=== PATIENT | male | born 1985 | race Caucasian/White ===

== ENCOUNTER 2021-01-15 12:00 | Outpatient (RCR) | payer BC ==
[~2021-01-15] VITALS: Ht 185.5 cm; Wt 111.3 kg
== END 2021-01-15 12:55 | disposition home or self-care (01) ==
LOC: PREOP 12:00
PROVIDERS: ATTEND Surgery
DX: Z01.818 Encounter for other preprocedural examination (principal)

== ENCOUNTER 2021-01-22 09:26 | Day surgery (SDC) | payer BC ==
[2021-01-22] VITALS (10 sets, daily range): BP systolic 110–145; BP diastolic 73–91
[~2021-01-22] VITALS: Ht 185.5 cm; Wt 111.3 kg
[2021-01-22] MEDS ORDERED: LACTATED RINGERS 1,000 ML IV PRN ×2 (09:45→10:00)
[2021-01-22] MEDS ORDERED: ceFAZolin 2 GM IV Premixed 50 ML IV ONE (09:45)
[2021-01-22] MEDS ORDERED: ONDANSETRON 4 MG/2 ML (SDV) Z0FRAN ONE (11:19)
[2021-01-22] MEDS ORDERED: LIDOCAINE PF 2% 5 ML (XYLOCAINE) VIAL ONE (11:19)
[2021-01-22] MEDS ORDERED: SEVOFLURANE (ULTANE) 15 ML INHAL SOLN ONE (11:19)
[2021-01-22] MEDS ORDERED: proPOfol 200 MG/20 ML (DIPRIVAN) VIAL IV ONE (11:19)
[2021-01-22] MEDS ORDERED: MIDAZOLAM 2 MG/2 ML (VERSED) VIAL ONE (11:19)
[2021-01-22] MEDS ORDERED: fentaNYL INJ 100 MCG/2 ML AMP ONE ×2 (11:19→12:05)
--- NOTE | 2021-01-22 11:44 | Progress Note-Pre Operative ---
Pre-Operative Progress Note H&P Reviewed The H&P was reviewed, patient examined and no changes noted. Time Seen by Provider: 11:42 Date H&P Reviewed: Jan 22, 2021 Time H&P Reviewed: 11:42 Pre-Operative Diagnosis: Adwoa-rectal abscess vs fistula AMANDA MARIE DO Jan 22, 2021 11:44
[2021-01-22] MEDS ORDERED: LACTATED RINGERS 1,000 ML IV SCH (12:15)
[2021-01-22] MEDS ORDERED: HYDROmorphone 2 MG/ML VIAL (DILAUDID) IV ONE (12:45)
[2021-01-22] MEDS ORDERED: morphine INJ 10 MG/ML 1ML (SYR OR VIAL) IVP ONE (12:45)
[2021-01-22] MEDS ORDERED: ONDANSETRON 4 MG/2 ML (SDV) Z0FRAN IVP PRN (12:45)
--- NOTE | 2021-01-22 13:06 | Anesthesia-General Post-Op ---
General Patient Condition Mental Status/LOC: Same as Preop Cardiovascular: Satisfactory Nausea/Vomiting: Absent Respiratory: Satisfactory Pain: Controlled Complications: Absent Post Op Complications Complications None Follow Up Care/Instructions Patient Instructions None needed. Anesthesia/Patient Condition Patient Condition Patient is doing well, no complaints, stable vital signs, no apparent adverse anesthesia problems. LYNN ENAMORADO DO Jan 22, 2021 13:06
--- NOTE | 2021-01-22 13:14 | Progress Note-Post Operative ---
Post-Operative Progess Note Surgeon (s)/Assessment Services Manager (s) Surgeon AMANDA MAIRE DO Assessment Services Manager: none Pre-Operative Diagnosis Adwoa-rectal abscess vs fistula Post-Operative Diagnosis same plus anal papilla Procedure & Operative Findings Date of Procedure 01/22/21 Procedure Performed/Findings Fistulotomy x 2 Excision of anal papilla Anesthesia Type LMA Estimated Blood Loss Estimated blood loss (mL): scant Specimens/Packing Specimens Removed anal papilla fistula tract AMANDA MARIE DO Jan 22, 2021 13:14
[2021-01-22] MEDS ORDERED: ACHD5005 PO (13:15)
--- NOTE | 2021-01-22 13:16 | Discharge Inst-Surgical ---
Discharge Inst-Surgical Depart Medication/Instructions New, Converted or Re-Newed RX: RX Given to Pt/Family Patient Instructions Follow up Appt: Make appointment for 1 week. [phone] Instructions: Sitz bath 2-3 times a day as needed May shower in 24 hours, no tub bath or soaking. No Smoking Skin/Wound Care: Pads as needed for drainage. Symptoms to Report: Appetite Changes, Extremity Discoloration, Numbness/Tingling, Swelling Increased, Bleeding Excessive, Eyesight Changes, Pain Increased, Urine Color Change, Constipation(Persistent), Fever over 101 degree F, Pain/Pressure in chest, Urinating Difficulty, Cough Up/Vomit Blood, Heart Beat Irreg/Pounding, Pain/Pressure in jaw, Cramps in feet or legs, Lightheadedness, Pain/Pressure in shoulder, Diarrhea(Persistent), Memory Changes Suddenly, Questions/Concerns, Weight gain consecutive days, Dizziness/Fainting, Nausea/Vomiting, Shortness of Breath, Weight gain over 2 pounds If questions or concerns contact your physician Or seek help at emergency department. Activity Activity as Tolerated: Yes Activity Instructions: Avoid Stress to Incision Driving Instructions: No Driving/Refer to Diet Discharge Diet: No Restrictions (increase fluids) Diet After 24 Hours: Clear Liquid if Nauseous If Any Problems/Questions/Issu: Contact Your Physician, Go to Emergency Room Skin/Wound Care Infection Signs and Symptoms: Increased Redness, Foul Odor of Wound, Increased Drainage, Skin Itchy or Has a Rash, Increased Swelling, Temperature Above 101 F Bathing Instructions: Tub, Shower AMANDA MARIE DO Jan 22, 2021 13:16
--- NOTE | 2021-01-23 12:43 | OPERATIVE REPORT ---
DATE OF SERVICE: 01/22/2021 PREOPERATIVE DIAGNOSIS: Anal fistula. POSTOPERATIVE DIAGNOSES: Anal fistula, anal fissure and anal papilla. PROCEDURES PERFORMED: 1. Fistulotomy. 2. Excision of anal papilla. SURGEON: He Luu DO JACQUARD LOOM WEAVER: None. ANESTHESIA: LMA. SPECIMEN: 1. Anal papilla. 2. Portion of the fistula tract. BLOOD LOSS: Scant. FLUIDS: Per anesthesia. POSTOPERATIVE CONDITION: Stable. INDICATION FOR PROCEDURE: The patient is a 35-year-old male who had two areas on his perianal area that had been draining, looked like there may be fistulas and needed to get this looked at. FINDINGS: The patient had a couple of anal papilla and he had two anal fistulas, one of them connected and one of them did not connect to the inside. PROCEDURE NOTE: After informed consent was obtained, the patient was brought to the operating room and placed on the table in a lithotomy position. There had been a plan to do a flex sig, but everything was lowered and did not need to do this. In the lithotomy position, he had one opening at about the 10 o'clock position and the another opening at about the 5 o'clock position, starting with the one at the 10 o'clock position, tried to place a probe very gently. I could feel it going mostly superficial. I used the angiocatheter with hydrogen peroxide to try and see where it went on the inside, could not get it to go through. I then used another probe with a hook from the inside, went it through one of the anal crypts and had a speculum in place and able to get these to connect. This was superficial and was anterior to the anal sphincter, so it was not through the anal sphincter and we opened this up with a Bovie electrocautery, thereby performing a fistulotomy. I did get a little portion of the fistula tract and passed this off the table. He had a couple anal normal papilla when we could see using a speculum. I elected to remove one of these with the Bovie electrocautery, passed these off the table and sent to pathology, then located his other opening, again tried probing very gently, did not want to create a tract and then used some hydrogen peroxide again, this did not go anywhere towards the 6 o'clock position, so opened the skin slightly in this direction, but again still could not follow the tract. It did not appear to go inside and so at this point, then elected to stop, irrigated the area, dressings placed. The patient tolerated the procedure and he was transferred to recovery room in stable condition. Sponge, instrument and needle count correct at the end of the case. Job ID: [id number] DocumentID: [id number] Dictated Date: 01/23/2021 10:15:28 Polo Coach Date: 01/23/2021 12:42:54 Dictated By: HE LUU DO
== END 2021-01-22 14:25 | disposition home or self-care (01) ==
LOC: SDC 09:26
PROVIDERS: ATTEND Surgery
DX: K60.3 Anal fistula (principal); K60.2 Anal fissure, unspecified; Z91.013 Allergy to seafood; Z87.891 Personal history of nicotine dependence
CPT/HCPCS: 87081; 88304; 88305

== ENCOUNTER 2021-09-17 05:32 | Outpatient (CLI) | payer BC ==
[~2021-09-17] VITALS: Ht 185.5 cm; Wt 101.8 kg
[~2021-09-17 05:32] MED LIST: ACHD5005 PO
== END 2021-09-17 11:28 | disposition home or self-care (01) ==
LOC: PREOP 05:32
PROVIDERS: ATTEND Surgery
DX: Z01.818 Encounter for other preprocedural examination (principal)

== ENCOUNTER 2021-09-24 08:24 | Day surgery (SDC) | payer BC ==
[~2021-09-24] VITALS: Ht 185.5 cm; Wt 101.8 kg
[2021-09-24] VITALS (11 sets, daily range): BP systolic 104–134; BP diastolic 55–84
[2021-09-24] MEDS ORDERED: ceFAZolin 2 GM IV Premixed 50 ML IV ONE (08:45)
[2021-09-24] MEDS: LACTATED RINGERS 1,000 ML IV PRN ×2 (09:14→11:21)
--- NOTE | 2021-09-24 10:01 | Progress Note-Pre Operative ---
Pre-Operative Progress Note H&P Reviewed The H&P was reviewed, patient examined and no changes noted. Time Seen by Provider: 09:57 Date H&P Reviewed: Sep 24, 2021 Time H&P Reviewed: 09:57 Pre-Operative Diagnosis: anal fistula AMANDA MARIE DO Sep 24, 2021 10:01
[2021-09-24] MEDS ORDERED: ONDANSETRON 4 MG/2 ML (SDV) Z0FRAN ONE (10:11)
[2021-09-24] MEDS ORDERED: MIDAZOLAM 2 MG/2 ML (VERSED) VIAL ONE (10:11)
[2021-09-24] MEDS ORDERED: proPOfol 200 MG/20 ML (DIPRIVAN) VIAL IV ONE ×2 (10:11→10:51)
[2021-09-24] MEDS ORDERED: fentaNYL INJ 100 MCG/2 ML AMP ONE (10:11)
[2021-09-24] MEDS ORDERED: LIDOCAINE PF 2% 5 ML (XYLOCAINE) VIAL ONE (10:11)
[2021-09-24] MEDS ORDERED: LIDOCAINE/EPI 1%-1:100,000 (XYLOCAINE) 20ML ONE (10:12)
[2021-09-24] MEDS ORDERED: SEVOFLURANE (ULTANE) 15 ML INHAL SOLN ONE (11:12)
--- NOTE | 2021-09-24 11:13 | Progress Note-Post Operative ---
Post-Operative Progess Note Surgeon (s)/Level Vial Setter (s) Surgeon AMANDA MARIE DO Level Vial Setter: TALISHA Enriquez Pre-Operative Diagnosis anal fistula Post-Operative Diagnosis Rectal polyp Anal fistula Procedure & Operative Findings Date of Procedure 09/24/21 Procedure Performed/Findings Exc of rectal polyp Rectal exam under anesthesia Seton placement Anesthesia Type LMA Estimated Blood Loss Estimated blood loss (mL): scant Specimens/Packing Specimens Removed rectal polyp AMANDA MARIE DO Sep 24, 2021 11:13
[2021-09-24] MEDS ORDERED: ACHD5005 PO (11:14)
--- NOTE | 2021-09-24 11:15 | Discharge Inst-Surgical ---
Discharge Inst-Surgical Depart Medication/Instructions New, Converted or Re-Newed RX: Transmitted to Pharmacy Patient Instructions Follow up Appt: Make appointment for 1 week. [phone] Instructions: No lifting greater than 20 pounds. No strenuous activity. May shower in 24 hours, no tub bath or soaking. Use incentive spirometer at home as directed. No Smoking Skin/Wound Care: May remove bandages in am. You need to leave the suture in place. Symptoms to Report: Appetite Changes, Extremity Discoloration, Numbness/Tingling, Swelling Increased, Bleeding Excessive, Eyesight Changes, Pain Increased, Urine Color C hange, Constipation(Persistent), Fever over 101 degree F, Pain/Pressure in chest, Urinating Difficulty, Cough Up/Vomit Blood, Heart Beat Irreg/Pounding, Pain/Pressure in jaw, Cramps in feet or legs, Lightheadedness, Pain/Pressure in shoulder, Diarrhea(Persistent), Memory Changes Suddenly, Questions/Concerns, Weight gain consecutive days, Dizziness/Fainting, Nausea/Vomiting, Shortness of Breath, Weight gain over 2 pounds If questions or concerns contact your physician Or seek help at emergency department. Activity Activity as Tolerated: Yes Driving Instructions: No Driving/Refer to Dr. Novoa Discharge Diet: No Restrictions (drink lots of fluids) Diet After 24 Hours: Clear Liquid if Nauseous If Any Problems/Questions/Issu: Contact Your Physician, Go to Emergency Room Skin/Wound Care Infection Signs and Symptoms: Increased Redness, Foul Odor of Wound, Increased Drainage, Skin Itchy or Has a Rash, Increased Swelling, Temperature Above 101 F Bathing Instructions: Shower Stitches/[place]/Dermabond Dis: Care of AMANDA Chau DO Sep 24, 2021 11:15
[2021-09-24] MEDS ORDERED: HYDROmorphone 2 MG/ML VIAL (DILAUDID) IV ONE (11:30)
[2021-09-24] MEDS ORDERED: morphine INJ 10 MG/ML 1ML (SYR OR VIAL) IVP ONE (11:30)
[2021-09-24] MEDS ORDERED: MEPERIDINE (DEMEROL) INJ 50 MG/ML IVP ONE (11:30)
[2021-09-24] MEDS ORDERED: ONDANSETRON 4 MG/2 ML (SDV) Z0FRAN IVP PRN (11:30)
--- NOTE | 2021-09-24 13:13 | Anesthesia-General Post-Op ---
General Patient Condition Mental Status/LOC: Same as Preop Cardiovascular: Satisfactory Nausea/Vomiting: Absent Respiratory: Satisfactory Pain: Controlled Complications: Absent Post Op Complications Complications None Follow Up Care/Instructions Patient Instructions None needed. Anesthesia/Patient Condition Patient Condition Patient is doing well, no complaints, stable vital signs, no apparent adverse anesthesia problems. No complications reported per nursing. ALLY GOMEZ CRNA Sep 24, 2021 13:13
--- NOTE | 2021-09-24 17:42 | OPERATIVE REPORT ---
DATE OF SERVICE: 09/24/2021 PREOPERATIVE DIAGNOSIS: Possible anal fistula. POSTOPERATIVE DIAGNOSIS: Rectal polyp and anal fistula. PROCEDURES: 1. Excision of rectal polyp. 2. Rectal exam under anesthesia. 3. Seton placement. SURGEON: He Luu DO CONTACT CENTER ANALYST: Isauro MS3. ANESTHESIA: LMA. SPECIMEN: Rectal polyp. BLOOD LOSS: Scant. FLUIDS: Per anesthesia. POSTOPERATIVE CONDITION: Stable. INDICATION FOR PROCEDURE: The patient is a 36-year-old male who has had some drainage around the perirectal area, perianal area and previously attempted anal fistulectomy unsuccessful could not find a connection to the rectum. FINDINGS: The patient had a small polyp in the rectum. This was removed with cautery. Also able to find the anal fistula. Seton placed. PROCEDURE NOTE: After informed consent was obtained, the patient was brought to the operating room, placed on the table in lithotomy position. He was sterilely prepped and draped in normal fashion. Local lidocaine was used to perform ischial tuberosity blocks as well as blocking around the rectal area. At the 12 o'clock position, there was a small area of what looked like minimal purulent drainage, opened this incision, opened this up a little bit, tried to inject some hydrogen peroxide, but could not get the hydrogen peroxide to go through to the rectum, used the speculum to look in the rectum, found a small rectal polyp, grasped this with an Allis and then cut this off with Bovie electrocautery, passed off table and sent to pathology. Again, tried this, injected with hydrogen peroxide, did not see anything, used a small lacrimal probe to follow this tract and then put my finger inside the rectum, could kind of feel the tip of the probe and then pushed for a little bit and went right into the rectum, probably like a blind end fistula. We were able to go through the rectum, then brought this probe out, tied 0 silk suture to it and then pulled this through the fistula, pulled through easily and then tied this 0 silk with a double suture tied it to itself, thereby creating a seton, tied relatively tight. Area was then cleaned and dried, fluff dressing placed and the patient transferred to recovery room in stable condition. Sponge, instrument and needle count correct at the end of the case. Job ID: [id number] DocumentID: [id number] Dictated Date: 09/24/2021 12:04:30 Bulb Sorter Date: 09/24/2021 17:41:32 Dictated By: HE LUU DO
== END 2021-09-24 13:35 | disposition home or self-care (01) ==
LOC: SDC 08:24
PROVIDERS: ATTEND Surgery
DX: K62.1 Rectal polyp (principal); K60.3 Anal fistula; K62.81 Anal sphincter tear (healed) (nontraumatic) (old); Z87.891 Personal history of nicotine dependence
CPT/HCPCS: 87081

== ENCOUNTER 2021-10-14 11:27 | Outpatient (CLI) | payer BC ==
[~2021-10-14] VITALS: Ht 185.5 cm; Wt 101.8 kg
== END 2021-10-14 11:56 | disposition home or self-care (01) ==
LOC: PREOP 11:27
PROVIDERS: ATTEND Surgery
DX: Z01.818 Encounter for other preprocedural examination (principal)

== ENCOUNTER 2021-10-15 09:48 | Day surgery (SDC) | payer BC ==
[2021-10-15] VITALS (10 sets, daily range): BP systolic 112–134; BP diastolic 64–89
[~2021-10-15] VITALS: Ht 185.5 cm; Wt 101.8 kg
[2021-10-15] MEDS ORDERED: BUPIVACAINE 0.25% 30 ML (SENSORCAINE) VIAL ONE (09:57)
[2021-10-15] MEDS ORDERED: LIDOCAINE/EPI 1%-1:100,000 (XYLOCAINE) 20ML ONE (09:58)
[2021-10-15] MEDS ORDERED: ceFAZolin 2 GM IV Premixed 50 ML IV ONE (10:15)
[2021-10-15] MEDS ORDERED: LACTATED RINGERS 1,000 ML IV PRN (10:15)
[2021-10-15] MEDS ORDERED: MIDAZOLAM 2 MG/2 ML (VERSED) VIAL ONE (10:30)
[2021-10-15] MEDS ORDERED: proPOfol 200 MG/20 ML (DIPRIVAN) VIAL IV ONE (10:30)
[2021-10-15] MEDS ORDERED: ONDANSETRON 4 MG/2 ML (SDV) Z0FRAN ONE (10:30)
[2021-10-15] MEDS ORDERED: fentaNYL INJ 100 MCG/2 ML AMP ONE (10:30)
[2021-10-15] MEDS ORDERED: LIDOCAINE PF 2% 5 ML (XYLOCAINE) VIAL ONE (10:30)
--- NOTE | 2021-10-15 10:57 | Progress Note-Pre Operative ---
Pre-Operative Progress Note H&P Reviewed The H&P was reviewed, patient examined and no changes noted. Time Seen by Provider: 10:54 Date H&P Reviewed: Oct 15, 2021 Time H&P Reviewed: 10:54 Pre-Operative Diagnosis: anal fistula AMANDA MARIE DO Oct 15, 2021 10:57
[2021-10-15] MEDS ORDERED: SEVOFLURANE (ULTANE) 15 ML INHAL SOLN ONE (11:22)
[2021-10-15] MEDS ORDERED: morphine INJ 10 MG/ML 1ML (SYR OR VIAL) IVP ONE (11:45)
[2021-10-15] MEDS ORDERED: ONDANSETRON 4 MG/2 ML (SDV) Z0FRAN IVP PRN (11:45)
[2021-10-15] MEDS ORDERED: PROMETHAZINE INJ 25 MG/ML (PHENERGAN) AMP IVP ONE (11:45)
--- NOTE | 2021-10-15 11:48 | Progress Note-Post Operative ---
Post-Operative Progess Note Surgeon (s)/Negative Turner Apprentice (s) Surgeon AMANDA MARIE DO Negative Turner Apprentice: TALISHA Gleason Pre-Operative Diagnosis anal fistula Post-Operative Diagnosis anal fissure Procedure & Operative Findings Date of Procedure 10/15/21 Procedure Performed/Findings REUA Anesthesia Type LMA Estimated Blood Loss Estimated blood loss (mL): scant Specimens/Packing Specimens Removed none AMANDA MARIE DO Oct 15, 2021 11:48
--- NOTE | 2021-10-15 11:50 | Discharge Inst-Surgical ---
Discharge Inst-Surgical Depart Medication/Instructions New, Converted or Re-Newed RX: Other (use OTC home meds) Patient Instructions Follow up Appt: Make appointment for 1 week. [phone] Instructions: No lifting greater than 20 pounds. No strenuous activity. May shower in 24 hours, no tub bath or soaking. Use incentive spirometer at home as directed. No Smoking Skin/Wound Care: Sitz baths and mild massage of area in shower. Symptoms to Report: Appetite Changes, Extremity Discoloration, Numbness/Tingling, Swelling Increased, Bleeding Excessive, Eyesight Changes, Pain Increased, Urine Color Change, Constipation(Persistent), Fever over 101 degree F, Pain/Pressure in chest, Urinating Difficulty, Cough Up/Vomit Blood, Heart Beat Irreg/Pounding, Pain/Pressure in jaw, Cramps in feet or legs, Lightheadedness, Pain/Pressure in shoulder, Diarrhea(Persistent), Memory Changes Suddenly, Questions/Concerns, Weight gain consecutive days, Dizziness/Fainting, Nausea/Vomiting, Shortness of Breath, Weight gain over 2 pounds If questions or concerns contact your physician Or seek help at emergency department. Activity Activity as Tolerated: Yes Driving Instructions: You May Drive Diet Discharge Diet: No Restrictions Diet After 24 Hours: Clear Liquid if Nauseous If Any Problems/Questions/Issu: Contact Your Physician, Go to Emergency Room Skin/Wound Care Infection Signs and Symptoms: Increased Redness, Foul Odor of Wound, Increased Drainage, Skin Itchy or Has a Rash, Increased Swelling, Temperature Above 101 F Bathing Instructions: Tub, Shower AMANDA MARIE DO Oct 15, 2021 11:50
--- NOTE | 2021-10-16 01:08 | OPERATIVE REPORT ---
DATE OF SERVICE: 10/15/2021 PREOPERATIVE DIAGNOSIS: Anal fistula. POSTOPERATIVE DIAGNOSIS: Anal fissure. PROCEDURE: Rectal exam under anesthesia. SURGEON: He Luu DO TUMBLING AND ROLLING SUPERVISOR: LATISHA Gleason. ANESTHESIA: LMA. SPECIMEN: None. BLOOD LOSS: Scant. FLUIDS: Per anesthesia. POSTOPERATIVE CONDITION: Stable. INDICATION FOR PROCEDURE: The patient is a 36-year-old male who had a previous anal fistula. The Seton had fallen out. When seen in the office, had a small opening with a little bit of purulent fluid coming out. FINDINGS: The patient when relaxed this actually opened up and it was a fissure. There was no fistula tract. Probably that the fistula was actually not below this muscle when Seton was previously placed before. PROCEDURE NOTE: After informed consent was obtained, the patient was brought to the operating room, placed on the table in lithotomy position. He was sterilely prepped and draped in normal fashion. Local lidocaine was used to perform ischial tuberosity block as well as block around the rectum and at the perineum in the lithotomy position. This opening was at about the 11 o'clock position, felt on the inside, did not see anything on the inside and then when actually placed a speculum and held this open, it looked like a fissure. There did not appear to be a fistula. I think what had happened was the edge towards 10 o'clock, was actually curled a little bit under the skin and so when the area was tight, it looked like but now relaxed, it was just fissure with just the edge curled, looked around to make sure there was no other fistula, did not see one, did not feel anything, muscle felt intact. At this point, the area was then cleaned and dried and the patient was transferred to recovery room in stable condition. Sponge, instrument and needle count correct at the end of the case. Job ID: [id number] DocumentID: [id number] Dictated Date: 10/15/2021 14:27:12 [employer] Date: 10/16/2021 01:07:15 Dictated By: HE LUU DO
== END 2021-10-15 13:12 | disposition home or self-care (01) ==
LOC: SDC 09:48
PROVIDERS: ATTEND Surgery
DX: K60.3 Anal fistula (principal); K60.2 Anal fissure, unspecified; Z87.891 Personal history of nicotine dependence
CPT/HCPCS: 87081